=== PATIENT | male | born 1945 | race Caucasian/White ===

== ENCOUNTER 2016-07-22 08:03 | Observation (INO) | payer MEDICARE, BC ==
[2016-07-22 08:45] LABS: BASO % 0.2 % (0-2); EOS % 1.4 % (0-7); EOSINOPHIL ABSOLUTE COUNT 0.2 tho/cmm (0.0-0.7); HCT-HEMATOCRIT 46.2 % (36.0-53.5); HGB-HEMOGLOBIN 15.4 gm/dl (13.5-17.0); IMMATURE GRANULOCYTES ABSOLUTE 0.03 tho/cmm (0-0.03); IMMATURE GRANULOCYTES PERCENT 0.3 % (0-0.3); LYMPH % 9.1 % (20-45); MCH (MEAN CORPUSCULAR HGB) 30.9 pg (28.0-32.0); MCHC MEAN CORPUSCULAR HGB CONC 33.3 % (32.0-36.0); MCV (MEAN CELL VOLUME) 92.6 fl (82.0-96.0); MEAN PLATELET VOLUME 11.8 cmc (9.4-12.4); MONO % 4.9 % (0-12); MONOCYTE ABSOLUTE COUNT 0.5 tho/cmm (0.0-1.2); NEUTROPHILS % 84.1 % (40-80); PLATELET COUNT 198 tho/cmm (150-450); RED BLOOD COUNT 4.99 mil/cmm (4.40-5.70); RED CELL DISTRIBUTION WIDTH 12.1 % (12.4-16.4); WHITE BLOOD COUNT 10.6 tho/cmm (4.0-10.0)
[2016-07-22 08:55] LABS: ANION GAP 12 mmol/L (0-20); BLOOD UREA NITROGEN 20 mg/dl (6-24); CALCIUM 8.9 mg/dl (8.5-10.5); CARBON DIOXIDE-VENOUS 26 mmol/L (22-32); CHLORIDE 106 mmol/l (96-110); CREATININE 1.01 mg/dl (0.60-1.30); GLUCOSE 152 mg/dL (70-110); SODIUM 140 mmol/L (135-145); eGFR VALUE FOR BLACK 88 mL/Min
[2016-07-23 05:59] LABS: ANION GAP 9 mmol/L (0-20); BLOOD UREA NITROGEN 18 mg/dl (6-24); CALCIUM 8.4 mg/dl (8.5-10.5); CARBON DIOXIDE-VENOUS 28 mmol/L (22-32); CHLORIDE 107 mmol/l (96-110); CREATININE 0.98 mg/dl (0.60-1.30); GLUCOSE 107 mg/dL (70-110); POTASSIUM 3.9 mmol/L (3.7-5.1); SODIUM 140 mmol/L (135-145); eGFR VALUE FOR BLACK >90 mL/Min
[2016-07-24 05:18] LABS: BLOOD UREA NITROGEN 17 mg/dl (6-24); eGFR VALUE FOR BLACK 89 mL/Min
[2016-07-24] MEDS ORDERED: LIPITOR20 M1 PO (13:14)
[2016-07-24] MEDS ORDERED: ASPIRIN81 M1 PO (13:14)
== END 2016-07-24 13:30 ==
LOC: EDMED 08:03 → EMR2 11:03 → CAR1 11:55 → PCUB 07-23 00:40
PROVIDERS: Emergency Medicine; Internal Medicine; ADMIT Internal Medicine Cardiovascular Disease
PROC: B2111ZZ Fluoroscopy of Multiple Coronary Arteries using Low Osmolar Contrast (ICD-10-PCS; principal; 2016-07-23)
DX: I25.10 Atherosclerotic heart disease of native coronary artery without angina pectoris (principal); I44.30 Unspecified atrioventricular block; F17.290 Nicotine dependence, other tobacco product, uncomplicated; I10 Essential (primary) hypertension; I35.1 Nonrheumatic aortic (valve) insufficiency; Z79.82 Long term (current) use of aspirin; Z79.899 Other long term (current) drug therapy; Z82.49 Family history of ischemic heart disease and other diseases of the circulatory system
CPT/HCPCS: A9500; C1887; C1894; G0378; J1644; J2250; J3010; J7030; Q9967